=== PATIENT | male | born 1960 | race Caucasian/White ===

== ENCOUNTER 2024-03-16 12:35 | Inpatient (IN) | payer BC, SELFPAY ==
[2024-03-16] VITALS (7 sets, daily range): BP systolic 109–169; BP diastolic 56–90; BMI 33.8; BMI 33.7
--- NOTE | 2024-03-16 09:43 | ED.GENMED ---
History of Present Illness
General
Chief Complaint: Abdominal Symptoms
Time Seen by Provider: 03/16/24 09:13
History of Present Illness
History of Present Illness:
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 Patient states for the past 5 days he has had 4-5 episodes of diarrhea a day. It was loose.
Today it turned bloody. He states that he had 1 episode of bloody diarrhea. When he wiped he did notice blood on his paper. It was bright red blood. He also been having lower abdominal pain. His last colonoscopy was 2 years ago and it was
unremarkable. Last endoscopy was 2 years ago as well. He does state that prior to this episode he did have quail at a restaurant. No recent travel. No antibiotics. No vomiting. No fevers chills. No chest pain difficulty breathing. No rashes.
Past History
Past History
ED Past Medical History: GERD, HTN, Hypercholesterolemia and Other (DVT/PE on Coumadin)
ED Past Surgical History: None
Social History
Tobacco: Non-smoker
Alcohol: None
Drug: None
Personal:
Living: with family
Employment: Employed ([employer])
Family History
Family History: Other (Father with CABG and valve surgery)
Phy Exam
Physical Exam
Physical Exam:
GENERAL: in no acute distress
HEENT: normocephalic, extraocular movements intact, moist oral mucosa
NECK: normal inspection
RESPIRATORY: no respiratory distress, clear to auscultation bilaterally
CARDIOVASCULAR: regular rate and rhythm
ABDOMEN/: soft, non-distended, non-tender to palpation, no rebound or guarding
Rectal: Chaperoned by ISABEL Solis, minimal blood in rectal vault that is Hemoccult negative, internal hemorrhoid palpated
EXTREMITIES: non-tender, no edema/swelling
NEUROLOGIC: awake and alert, moves all extremities
SKIN: warm
Course
Orders/Labs/Results
Orders:
Orders
03/16/24 09:31
CT Abd/pelvis W Iv Cont Urgent
Comment:
Reason For Exam: abd pain, bloody stool
03/16/24 09:47
Complete Blood Count/With Diff Urgent
03/16/24 09:48
Comprehensive Metabolic Panel Urgent
03/16/24 10:35
Stool Culture Urgent
JUAN Source: Feces/Stool
Specimen Description:
Date Specimen was Collected: 03/16/24
Time Specimen was Collected: 10:27
Abnormal Lab Results
03/16/24 03/16/24
09:47 09:48
RBC 4.28 L 10^6/uL
(4.70-6.10)
MCV 94.6 H fL
(80.0-94.0)
MCH 32.0 H pg
(27.0-31.0)
Absolute Lymphs (auto) 0.7 L 10^3/uL
(1.2-3.4)
Absolute Monos (auto) 0.7 H 10^3/uL
(0.1-0.6)
Lymphocytes % 14.2 L %
(20.5-51.1)
Monocytes % 13.4 H %
(1.7-9.3)
Sodium 134 L mmol/L
(135-145)
BUN 22 H mg/dl
(9-20)
Glucose 115 H mg/dl
(70-99)
03/16/24 09:47
03/16/24 09:48
Vital Signs
Initial and Last Documented VS:
Initial Vital Signs
Temp Pulse Resp BP Pulse Ox
97.9 F 97 16 154/90 98
03/16/24 08:54 03/16/24 08:54 03/16/24 08:54 03/16/24 08:54 03/16/24 08:54
Last Documented Vital Signs
Temp Pulse Resp BP Pulse Ox
98.3 F 86 14 109/75 95
03/16/24 10:58 03/16/24 10:58 03/16/24 10:58 03/16/24 10:58 03/16/24 10:58
MDM/Problems Addressed
Differential Diagnosis Includes:
Patient is a 63-year-old man on Xarelto for PE/DVT presenting to the emergency department with abdominal pain diarrhea that has now turned bloody. Vitals are unremarkable and exam shows a benign abdomen with a rectal exam that is Hemoccult negative
but there is a internal hemorrhoid. Differential consists of diverticulitis versus enteritis versus lower GI bleed from hemorrhoid. Less likely mesenteric ischemia. Will check blood work and obtain CT scan. Will send stool cultures as well.
*Critical Care Note
Total Time (30-74mins, 75-104mins- exclusive of procedures): Not Applicable
Update Note
Update Note:
On reevaluation patient states that he has had 2 additional episodes of blood per his rectum. He states that he notices it mixed with the stool towards the end of his bowel movement. He does state that it was less than the [address] scan
does show long segment colitis. Stool culture pending at this time. Given the anticoagulation and the recurrent episodes we will admit for observation. Discussed with hospitalist who accepted patient to their service.
ED Attending Note
-
Portions of this chart may have been created with voice recognition software.� Occasional wrong word or��sound alike� substitutions may have occurred due to the inherent limitations of voice recognition software.
Discharge Plan
Departure
Patient Disposition: Admit
Date of Disposition: 03/16/24
Time of Disposition: 11:52
Presentation/result/management discussed w/ accepting MD/DO: Hospitalist
Discharge Problem:
GI bleed, Colitis
Prescriptions:
No Action
warfarin 5 MG tablet
5 mg PO DAILY
folic acid 1 MG tablet
1 mg PO DAILY
furosemide 40 MG tablet
40 mg PO DAILY
diltiazem HCl [Cartia XT] 240 MG capsule,extended release 24hr
240 mg PO DAILY
pravastatin 80 MG tablet
80 mg PO DAILY
esomeprazole magnesium [Nexium] 40 MG capsule,delayed release(DR/EC)
40 mg PO DAILY
ezetimibe 10 MG tablet
10 mg PO DAILY
Referrals:
Chris Sneed MD [Family Provider] -
Interventions
Interventions:
*Risk Screen - Suicide Last Done: 03/16/24 09:55
*General Assessment Last Done: 03/16/24 09:55
*Neglect/Abuse Screening Last Done: 03/16/24 09:55
ED- Fall Risk Assessment Last Done: 03/16/24 09:55
*ED COVID-19 Vaccine History Last Done: 03/16/24 09:55
MO-Kjmmgm-Befbrkcwci Assessment Last Done: 03/16/24 09:55
Discharge Date and Time
Print Language: PUERTO RICAN
[2024-03-16 09:56] LABS: % Basophils 0.6 % (0-2); % Eosinophils 1.4 % (0-6); % Immature Granulocytes 0.2 % (0-0.5); % Lymphocytes 14.2 % (20.5-51.1); % Monocytes 13.4 % (1.7-9.3); % Neutrophils 70.2 % (42.2-75.2); Absolute Eosinophils 0.1 10^3/uL (0-0.7); Absolute Lymphocytes 0.7 10^3/uL (1.2-3.4); Absolute Monocytes 0.7 10^3/uL (0.1-0.6); Absolute Neutrophils 3.4 10^3/uL (1.4-6.5); Hematocrit 40.5 % (39.0-52.0); Hemoglobin 13.7 g/dL (13.0-18.0); Mean Corp Hgb Conc. 33.8 g/dL (33.0-37.0); Mean Corpuscular Volume 94.6 fL (80.0-94.0); Nucleated Red Blood Cells % 0 % (-); Platelet Count 157 10^3/uL (130-400); Red Blood Cell Count 4.28 10^6/uL (4.70-6.10); Red Cell Dist. Width 12.7 % (11.5-14.5); White Blood Cell Count 4.9 10^3/uL (4.8-10.8)
[2024-03-16 10:22] LABS: ALT (SGPT) 26 U/L (0-50); AST (SGOT) 26 U/L (17-59); Albumin 4.2 g/dl (3.5-5.0); Alkaline Phosphatase 64 U/L (38-126); Blood Urea Nitrogen 22 mg/dl (9-20); Calcium 9.5 mg/dl (8.4-10.2); Carbon Dioxide 24 mmol/L (22-30); Chloride 101 mmol/L (98-107); Estimated Creatinine Clearance 84 ml/min; Glucose 115 mg/dl (70-99); Potassium 3.6 mmol/L (3.5-5.1); Sodium 134 mmol/L (135-145); Total Bilirubin 0.5 mg/dl (0.2-1.3); eGFR > 60.00
--- NOTE | 2024-03-16 12:21 | EDRN ---
Melisa research pharmacist doing med rec at this time.
--- NOTE | 2024-03-16 12:25 | HPS.HSE ---
Family Physician
-
Family Physician: Chris Sneed
Chief Complaint
-
diarrhea
History of Present Illness
63-year-old male past medical history of prothrombin gene mutation, prior DVT/PE on Xarelto, hyperlipidemia, hypertension, esophagitis, GERD, presenting with abdominal pain and diarrhea. Patient went to a restaurant 5 days ago had multiple special
foods including [place] which nobody else had. He has had 4-5 episodes of diarrhea per day over the past few days which was loose and watery. Today turned bloody. 1 episode of bloody diarrhea. When he wiped he noticed blood on the toilet paper
which was bright red. He is also been having lower abdominal pain. Denies vomiting. Denies fevers or chills except the first day. Last colonoscopy 2 years ago and unremarkable.
Last endoscopy was 2 years ago to evaluate GERD and he was found to have esophagitis.
Drinks alcohol occasionally. Denies smoking. Denies drugs.
Denies travel or recent antibiotics.
Medical History
Past Medical History
Past Medical History: Reports Other ( prothrombin gene mutation, prior DVT/PE on Xarelto, hyperlipidemia, hypertension, esophagitis, GERD,)
Past Surgical History: Reports None
Social History
Tobacco: Non-smoker
Alcohol: Occasional
Drug: None
Family History
Family History: Not pertinent
Allergies / Home Medications
Allergies reflects when Allergies were last updated in [facility].
Home Medications with original date entered in [facility]
Allergy/Medication List:
Allergies
Allergy/AdvReac Type Severity Reaction Status Date / Time
sulfamethoxazole Allergy Mild Itching Verified 03/16/24 08:56
[From Bactrim]
trimethoprim [From Bactrim] Allergy Mild Itching Verified 03/16/24 08:56
Penicillins Allergy Hives Verified 04/28/20 12:21
Home Medications
folic acid 1 mg tablet 1 mg PO HS 03/16/17
diltiazem HCl 240 mg capsule,extended release 24 hr (Cartia XT) 240 mg PO HS 04/28/20
esomeprazole magnesium 40 mg capsule,delayed release (Nexium) 40 mg PO DAILY 04/28/20
ezetimibe 10 mg tablet 10 mg PO DAILY 04/28/20
furosemide 40 mg tablet 40 mg PO DAILY 04/28/20
pravastatin 80 mg tablet 80 mg PO QPM 04/28/20
rivaroxaban 10 mg tablet (Xarelto) 10 mg PO QPM 03/16/24
sertraline 100 mg tablet 100 mg PO DAILY 03/16/24
tamsulosin 0.4 mg capsule (Flomax) 0.4 mg PO HS 03/16/24
valacyclovir 500 mg tablet (Valtrex) 500 mg PO DAILYPRN PRN flare ups 03/16/24
Review of Systems
-
History Source: Patient
A 12 point ROS was completed and negative except as noted: Yes
Constitutional: Reports No Symptoms
EENT: Reports No Symptoms
Respiratory: Reports No Symptoms
Cardiac: Reports No Symptoms
Abdomen/GI: Reports See HPI
: Reports No Symptoms
Musculoskeletal: Reports No Symptoms
Skin: Reports No Symptoms
Neurological: Reports No Symptoms
Endocrine: Reports No Symptoms
Hematologic/Lymphatic: Reports No Symptoms
Psych: Reports No Symptoms
Physical Exam
Vital Signs
Vital Signs
Temp Pulse Resp BP Pulse Ox
98.3 F 91 16 169/85 96
03/16/24 10:58 03/16/24 12:16 03/16/24 12:16 03/16/24 12:16 03/16/24 12:16
Physical Exam
General: Well Developed, Well Nourished and No Apparent Distress
HEENT: NormoCephalic, Moist mucous membranes and Atraumatic
Respiratory: Clear
Cardiac: S1/S2 and Regular Rhythm; No Murmur or Rub
GI: Soft, Non Distended, Normal Bowel Sounds and Tender; No Organomegaly
Rectal: Deferred by Provider
Musculoskeletal: No Clubbing, No Cyanosis and No Edema
Skin: No Rash
Neuro: Nonfocal/grossly intact
Laboratory Results
-
03/16/24 09:47
03/16/24 09:48
Laboratory Results
Total Bilirubin 0.5 mg/dl (0.2-1.3) 03/16/24 09:48
AST 26 U/L (17-59) 03/16/24 09:48
ALT 26 U/L (0-50) 03/16/24 09:48
Alkaline Phosphatase 64 U/L (38-126) 03/16/24 09:48
Data Reviewed
-
Lab Data: Labs Reviewed by me
Old Records: Reviewed
Impression/Plan
-
IMPRESSION:
PLAN:
# Acute infectious colitis associated with hematochezia
-Symptoms ongoing for 4 days
-CT abdomen pelvis shows long segment colitis involving the transverse, descending and sigmoid colon
-IV fluids
-Hold Lasix
-Clear liquid diet
-Check stool culture, C. difficile, norovirus
-Cefepime/Flagyl
History of DVT/PE
History of prothrombin gene mutation
-Hold Xarelto until resolution of bleeding
Essential hypertension
-Continue diltiazem
Hyperlipidemia
-Continue Zetia
-Continue statin
GERD/esophagitis
-Continue omeprazole
Anxiety/Depression
-continue sertraline
BPH
-continue tamsulosin
Lower extremity edema
-Hold lasix
Full code
DVT prophylaxis�SCDs
Clear liquids
--- NOTE | 2024-03-16 12:55 | EDRN ---
Stool for C. Diff and Norovirus ordered as add-ons w/ micro called and informed. Pt's assigned bed is a private room.
[2024-03-16] MEDS: FLAGYL 500 MG 100 IV ×2 (15:47→23:21)
[2024-03-16] MEDS: NSS 1000 IV (15:47)
[2024-03-16] MEDS: MAXIPIME 1000 MG IV (15:47)
[2024-03-16] MEDS: STERILE WATER FOR INJECTION 10 ML IV (15:47)
[2024-03-16] MEDS: PRAVACHOL 80 MG PO (18:16)
[2024-03-16] MEDS: CARDIZEM CD 240 MG PO (23:20)
[2024-03-16] MEDS: FOLVITE 1 MG PO (23:23)
[2024-03-16] MEDS: FLOMAX 0.4 MG PO (23:23)
[2024-03-17] MEDS: NSS 1000 IV ×2 (02:25→14:15)
[2024-03-17] MEDS: MAXIPIME 1000 MG IV ×2 (02:31→14:16)
[2024-03-17] MEDS: STERILE WATER FOR INJECTION 10 ML IV ×2 (02:33→14:16)
[2024-03-17] MEDS: FLAGYL 500 MG 100 IV ×3 (05:10→22:31)
[2024-03-17 07:28] VITALS: BP 104/52
[2024-03-17 08:14] LABS: % Basophils 0.9 % (0-2); % Eosinophils 3.3 % (0-6); % Lymphocytes 36.8 % (20.5-51.1); % Monocytes 15.1 % (1.7-9.3); % Neutrophils 43.9 % (42.2-75.2); Absolute Eosinophils 0.1 10^3/uL (0-0.7); Absolute Lymphocytes 1.2 10^3/uL (1.2-3.4); Absolute Monocytes 0.5 10^3/uL (0.1-0.6); Absolute Neutrophils 1.5 10^3/uL (1.4-6.5); Hematocrit 36.3 % (39.0-52.0); Hemoglobin 12.1 g/dL (13.0-18.0); Mean Corp Hgb Conc. 33.3 g/dL (33.0-37.0); Mean Corpuscular Hgb 31.4 pg (27.0-31.0); Mean Corpuscular Volume 94.3 fL (80.0-94.0); Mean Platelet Volume 9.1 fL (7.4-10.4); Nucleated Red Blood Cells % 0 % (-); Platelet Count 154 10^3/uL (130-400); Red Blood Cell Count 3.85 10^6/uL (4.70-6.10); Red Cell Dist. Width 12.8 % (11.5-14.5); White Blood Cell Count 3.4 10^3/uL (4.8-10.8)
[2024-03-17 08:42] LABS: ALT (SGPT) 24 U/L (0-50); AST (SGOT) 24 U/L (17-59); Albumin 3.7 g/dl (3.5-5.0); Alkaline Phosphatase 59 U/L (38-126); Blood Urea Nitrogen 15 mg/dl (9-20); Calcium 8.7 mg/dl (8.4-10.2); Carbon Dioxide 25 mmol/L (22-30); Chloride 106 mmol/L (98-107); Estimated Creatinine Clearance 84 ml/min; Glucose 95 mg/dl (70-99); Potassium 3.8 mmol/L (3.5-5.1); Sodium 140 mmol/L (135-145); Total Bilirubin 0.5 mg/dl (0.2-1.3); Total Protein 6.3 g/dl (6.3-8.2); eGFR > 60.00
--- NOTE | 2024-03-17 09:11 | W.PN.HOSP.TC ---
Today's Communication/Plan
-
Antibiotics. Advance diet.
Assessment / Plan
Assessment / Plan
Physical exam:
General: Well Developed, Well Nourished and No Apparent Distress
HEENT: Normocephalic, Atraumatic and Moist Mucous Membranes
Respiratory: Clear to Auscultation; Negative Wheezes, Rales or Rhonchi
Cardiac: Regular Rhythm and S1/S2
GI: Soft, Nontender and Nondistended
Musculoskeletal: No Clubbing, No Cyanosis and No Edema
Neuro: Awake, Alert and Oriented
Psych: Calm
A/P:
# Acute infectious colitis associated with hematochezia
-Symptoms ongoing for 4 days
-CT abdomen pelvis shows long segment colitis involving the transverse, descending and sigmoid colon
-Stop IV fluids
-Hold Lasix and resume in am
-Clear liquid diet and advance as tolerated in am
-Check stool culture
-Negative C. difficile, norovirus
-Cont Cefepime/Flagyl and change to oral in am for short course 5 days
-Patient had recent colonoscopy and unremarkable per report
History of DVT/PE
History of prothrombin gene mutation
-Hold Xarelto until resolution of bleeding-->resume likely tomorrow
Essential hypertension
-Continue diltiazem
Hyperlipidemia
-Continue Zetia
-Continue statin
GERD/esophagitis
-Continue omeprazole
Anxiety/Depression
-continue sertraline
BPH
-continue tamsulosin
Lower extremity edema
-Hold lasix
Full code
DVT prophylaxis�SCDs
Anticipated Discharge: Within 24 hours
Subjective/Interval History
-
Date of Service: March 17, 2024
less diarrhea, less bloody BM, no abd pain.
Objective Data
-
Labs:
Laboratory Results
03/17/24
07:50
WBC 3.4 L
Hgb 12.1 L
Hct 36.3 L
Plt Count 154
Sodium 140
Potassium 3.8
Chloride 106
Carbon Dioxide 25
BUN 15
Creatinine 1.2
Glucose 95
Calcium 8.7
Total Bilirubin 0.5
AST 24
ALT 24
Alkaline Phosphatase 59
Vital Signs:
Vital Signs
Temp Pulse Resp BP Pulse Ox
98.2 F 77 18 104/52 97
03/17/24 07:28 03/17/24 07:28 03/17/24 07:28 03/17/24 07:28 03/17/24 07:28
I&O
03/16/24 03/17/24 03/18/24
06:59 06:59 06:59
Intake Total 240 / 240
Balance 240 / 240
[2024-03-17] MEDS: ZOLOFT 100 MG PO (09:51)
--- NOTE | 2024-03-17 14:53 | CM ---
CM met with pt spouse/Iliana bedside
They reside in a [address] with [address]
13 [address] to 2nd floor
Pt is indep with his ADLs- no ADs
Retired and utilizes a cpap sporadically at home
Denies financial insecurities
PCP- Chris Sneed
Rx- [facility] [place]
Discharge Disposition- home, no needs anticipated
[2024-03-17 15:16] VITALS: BP 113/65
[2024-03-17] MEDS: PRAVACHOL 80 MG PO (18:16)
[2024-03-17 20:07] LABS: Hepatitis C Antibody Negative (Negative)
[2024-03-17] MEDS: FLOMAX 0.4 MG PO (22:30)
[2024-03-17] MEDS: CARDIZEM CD 240 MG PO (22:31)
[2024-03-17] MEDS: FOLVITE 1 MG PO (22:31)
[2024-03-17 23:07] VITALS: BP 131/77
[2024-03-18] MEDS: MAXIPIME 1000 MG IV (02:10)
[2024-03-18] MEDS: STERILE WATER FOR INJECTION 10 ML IV (02:10)
[2024-03-18] MEDS: FLAGYL 500 MG 100 IV (05:17)
[2024-03-18 07:31] VITALS: BP 137/66
[2024-03-18 08:30] LABS: % Basophils 0.8 % (0-2); % Eosinophils 2.7 % (0-6); % Immature Granulocytes 0.6 % (0-0.5); % Lymphocytes 32.4 % (20.5-51.1); % Monocytes 9.5 % (1.7-9.3); Absolute Eosinophils 0.1 10^3/uL (0-0.7); Absolute Lymphocytes 1.6 10^3/uL (1.2-3.4); Absolute Monocytes 0.5 10^3/uL (0.1-0.6); Absolute Neutrophils 2.6 10^3/uL (1.4-6.5); Hematocrit 38.2 % (39.0-52.0); Hemoglobin 13.2 g/dL (13.0-18.0); Mean Corp Hgb Conc. 34.6 g/dL (33.0-37.0); Mean Corpuscular Hgb 31.9 pg (27.0-31.0); Mean Corpuscular Volume 92.3 fL (80.0-94.0); Mean Platelet Volume 9.1 fL (7.4-10.4); Nucleated Red Blood Cells % 0 % (-); Platelet Count 187 10^3/uL (130-400); Red Blood Cell Count 4.14 10^6/uL (4.70-6.10); Red Cell Dist. Width 12.5 % (11.5-14.5); White Blood Cell Count 4.8 10^3/uL (4.8-10.8)
[2024-03-18] MEDS: ZOLOFT 100 MG PO (08:33)
[2024-03-18] MEDS: NON-FORMULARY ITEM 40 MG PO (08:34)
[2024-03-18 08:40] LABS: Blood Urea Nitrogen 13 mg/dl (9-20); Calcium 9.1 mg/dl (8.4-10.2); Carbon Dioxide 22 mmol/L (22-30); Chloride 106 mmol/L (98-107); Estimated Creatinine Clearance 92 ml/min; Glucose 96 mg/dl (70-99); Potassium 4.1 mmol/L (3.5-5.1); Sodium 141 mmol/L (135-145); eGFR > 60.00
--- NOTE | 2024-03-18 10:46 | W.PN.HOSP.TC ---
Today's Communication/Plan
-
Discharge planning
Assessment / Plan
Assessment / Plan
Physical exam:
General: Well Developed, Well Nourished and No Apparent Distress
HEENT: Normocephalic, Atraumatic and Moist Mucous Membranes
Respiratory: Clear to Auscultation; Negative Wheezes, Rales or Rhonchi
Cardiac: Regular Rhythm and S1/S2
GI: Soft, Nontender and Nondistended
Musculoskeletal: No Clubbing, No Cyanosis and No Edema
Neuro: Awake, Alert and Oriented
Psych: Calm
A/P:
# Acute infectious colitis associated with hematochezia
-Symptoms ongoing for 4 days
-CT abdomen pelvis shows long segment colitis involving the transverse, descending and sigmoid colon
-Stop IV fluids
-Hold Lasix and resume in am
-Clear liquid diet and advance as tolerated in am
-Check stool culture
-Negative C. difficile, norovirus
-Cont Cefepime/Flagyl and change to oral today for short course 5 days
-Patient had recent colonoscopy and unremarkable per report--> asked patient to follow-up with GI as outpatient
-Discharge plan for today
History of DVT/PE
History of prothrombin gene mutation
-Hold Xarelto until resolution of bleeding-->resume today
Essential hypertension
-Continue diltiazem
Hyperlipidemia
-Continue Zetia
-Continue statin
GERD/esophagitis
-Continue omeprazole
Anxiety/Depression
-continue sertraline
BPH
-continue tamsulosin
Lower extremity edema
-Hold lasix and now resumed today
Full code
DVT prophylaxis�SCDs
Anticipated Discharge: Today
Subjective/Interval History
-
Date of Service: March 18, 2024
Diarrhea slowed down significantly although he has some. No rectal bleeding. No abdominal pain nausea or vomiting. Afebrile
Objective Data
-
Labs:
Laboratory Results
03/18/24
07:37
WBC 4.8
Hgb 13.2
Hct 38.2 L
Plt Count 187 D
Sodium 141
Potassium 4.1
Chloride 106
Carbon Dioxide 22
BUN 13
Creatinine 1.1
Glucose 96
Calcium 9.1
Vital Signs:
Vital Signs
Temp Pulse Resp BP Pulse Ox
98.7 F 68 18 137/66 96
03/18/24 07:31 03/18/24 07:31 03/18/24 07:31 03/18/24 07:31 03/18/24 07:31
I&O
03/17/24 03/18/24 03/19/24
06:59 06:59 06:59
Intake Total 240 / 240 1560 / 1560
Balance 240 / 240 1560 / 1560
[2024-03-18] MEDS: CIPRO 500 MG PO (10:58)
--- NOTE | 2024-03-18 12:15 | CM ---
Chart reviewed, and patient is for possible discharge per physician notes.
Plan; Home today.
[2024-03-18] MEDS: FLAGYL 500 MG PO (13:59)
--- NOTE | 2024-03-18 14:10 | W.DCSUMMARY ---
Discharge Summary
Discharge Data
Date of Admission: 03/16/24
Date of Discharge: 03/18/24
-
Pending Results: No
Hospital Course
Patient is 63 years old with history of prothrombin gene mutation and prior DVT and PE on chronic anticoagulation, hypertension, hyperlipidemia presented to the hospital with abdominal pain and diarrhea and some rectal bleed. Patient had a CT scan
of the abdomen that showed colitis. Patient also had eating some strange food that trigger his presentation prior to admission. Patient was started on IV antibiotics and IV fluids and anticoagulation was held. Patient improved substantially and
he has remained afebrile and anticoagulation restarted. Patient had recent colonoscopy a couple years ago and has been unremarkable per patient report. His presentation is consistent with infectious colitis and we instructed him to follow-up with
GI as outpatient. No other events were noticed. He will be discharged in stable condition today.
Discharge duration: 35 minutes
Discharge Plan
-
Patient Disposition: Home (Routine Discharge)
Discharge Diagnosis/Procedures: Infectious colitis. 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 Hypertension. Hyperlipidemia.
Diet: Low Fat
Activity: As tolerated
Blood Work: Please PCP to order CBC, BMP within 1 week
Referrals:
GI, provider [Other] (See within the next 2 to 4 weeks)
Chris Sneed MD [Family Provider] - in less than 1 week
Prescriptions:
New
metronidazole 500 mg Tablet
500 mg PO Q8H 5 Days Qty: 15 0RF
ciprofloxacin HCl 500 mg Tablet
500 mg PO BID 5 Days Qty: 10 0RF
Continued
folic acid 1 MG tablet
1 mg PO HS
furosemide 40 MG tablet
40 mg PO DAILY
diltiazem HCl [Cartia XT] 240 MG capsule,extended release 24hr
240 mg PO HS
pravastatin 80 MG tablet
80 mg PO QPM
esomeprazole magnesium [Nexium] 40 MG capsule,delayed release(DR/EC)
40 mg PO DAILY
ezetimibe 10 MG tablet
10 mg PO QPM
sertraline 100 mg Tablet
100 mg PO DAILY
valacyclovir [Valtrex] 500 mg Tablet
500 mg PO DAILYPRN PRN (Reason: flare ups)
tamsulosin [Flomax] 0.4 mg Capsule
0.4 mg PO HS
Xarelto 10 mg Tablet
10 mg PO QPM
Discharge Orders:
Discharge Patient (As Directed); Ordered 03/18/24
Ordered By: Raj Mensah
Discharge Date and Time
Discharge Date/Time: 03/18/24 16:30
Print Language: URDU
[2024-03-18 15:10] VITALS: BP 125/79
== END 2024-03-18 16:30 | disposition home or self-care (01) | DRG 378 ==
LOC: 4 WEST ACU 12:35
PROVIDERS: ADMITTING PHYSICIAN Hospitalist; ATTENDING PHYSICIAN Hospitalist; EMERGENCY PHYSICIAN Student in an Organized Health Care Education/Training Program; FAMILY PHYSICIAN Internal Medicine
DX: K92.1 Melena (principal); A09 Infectious gastroenteritis and colitis, unspecified; D68.52 Prothrombin gene mutation; Z86.718 Personal history of other venous thrombosis and embolism; Z86.711 Personal history of pulmonary embolism; I10 Essential (primary) hypertension; E78.00 Pure hypercholesterolemia, unspecified; K21.00 Gastro-esophageal reflux disease with esophagitis, without bleeding; N40.0 Benign prostatic hyperplasia without lower urinary tract symptoms; F41.9 Anxiety disorder, unspecified; F32.A Depression, unspecified; Z88.0 Allergy status to penicillin; Z88.2 Allergy status to sulfonamides; R60.0 Localized edema
CPT/HCPCS: 74177; 80048; 80053; 85025; 86803; 87045; 87046; 87324; 87427; 87449; 87798; 99285; Q9967